=== PATIENT | female | born 1955 | race Caucasian/White ===

== ENCOUNTER → 2016-07-28 | Outpatient (CLI) | payer BC ==
[~2016-07-28] MED LIST: APIDRA; ASPEC81 PO; ATEN-173 PO; ESTRING VAGRING; INSULIN PUMP; LISI10TA PO; PRAV20TA PO; SERT50TA PO
--- NOTE | 2016-07-28 12:56 | DIAGNOSTIC IMAGING REPORT ---
LEFT KNEE 2 VIEWS CLINICAL HISTORY: Left knee pain. FINDINGS: AP and lateral views of left knee are obtained. No prior studies are available for comparison at the time of dictation. The skeletal structures are well mineralized. No fracture is seen. There is minimal tricompartmental degenerative joint space narrowing. There is no joint effusion. The overlying soft tissues are within normal limits. IMPRESSION: No acute bony abnormality is seen in the left knee. Electronically signed by: Neftali Jacinto M.D. 07/28/2016 12:54 PM Dictated Date/Time: 07/28/2016 12:53 PM
== END | disposition home or self-care (01) ==
LOC: C.RAD1850 12:21
PROVIDERS: ATTEND Family Medicine
DX: M25.562 Pain in left knee (principal)